=== PATIENT | male | born 1975 | race Caucasian/White ===

== ENCOUNTER 2017-05-25 23:32 | Emergency (ER) | payer OTHER ==
[2017-05-26 00:02] VITALS: BP 133/100; PULSE 102; TEMP 98.3; BMI 25.8
[2017-05-26] MEDS ORDERED: ASPIRIN 81 MG CHEWABLE TABLETS PO ONE (00:46)
[2017-05-26] MEDS ORDERED: ASPIRIN 81 MG CHEWABLE TABLETS ONE (00:53)
[2017-05-26 01:17] LABS: BASOPHIL 1.1 % (0-2.0); EOSINOPHIL 1.1 % (0-4.5); MCH 29.8 pg (25.7-33.7); MCHC 34.6 g/dl (32.0-35.9); MEAN PLT VOLUME 9.8 fl (7.5-11.1); NEUTROPHILS 56.2 % (42.8-82.8); PLATELET COUNT 206 K/MM3 (134-434); RDW 13.7 % (11.9-15.9); WHITE BLOOD COUNT 5.3 K/mm3 (4.0-10.0)
--- NOTE | 2017-05-26 01:21 | PDOC ---
History of Present Illness - General History Source: Patient Exam Limitations: No Limitations - History of Present Illness Initial Comments: 05/26/17 01:29 The patient is a 41 year old female, with a significant past medical history of Colon CA treated and in remission for 3 years, who presents to the emergency department with upper back pain for the past 2 weeks He notes that his pain worsened, prompting him to come to the ED. He describes his pain as ranging from mild to moderate, without radiation. He notes that certain movements exacerbates the pain. He reports that he became diaphoretic, experienced shortness of breath, lightheadedness and chest pain. He describes the chest pain as a pressure, ranging from mild to moderate, without radiation or modifying factors. He notes that the pain lasted a few minutes before resolving. He denies having this kind of pain in the past. He denies any family history of heart disease. He denies any recent travel or history of DVT or PE. He does note that he has been having a chronic dry cough. The patient denies headache, fever, chills, nausea, vomit, diarrhea and constipation. Denies dysuria, frequency, urgency and hematuria. Allergies: None Past surgical history: None reported Social history: No alcohol, tobacco or drug use reported <Tomy Pena - Last Filed: 05/26/17 01:28> <Zahra Gibbons - Last Filed: 05/26/17 02:15> - General Chief Complaint: Back Pain Stated Complaint: PAIN, ACUTE Past History <Tomy Pena - Last Filed: 05/26/17 01:28> - Immunization History Immunization Up to Date: No - Psycho/Social/Smoking Cessation Hx Anxiety: No Suicidal Ideation: No Smoking Status: No Smoking History: Never smoked Have you smoked in the past 12 months: No Number of Cigarettes Smoked Daily: 0 Information on smoking cessation initiated: No Hx Alcohol Use: No Drug/Substance Use Hx: No <Zahra Gibbons - Last Filed: 05/26/17 02:15> - Past Medical History Allergies/Adverse Reactions: Allergies Allergy/AdvReac Type Severity Reaction Status Date / Time No Known Allergies Allergy Unverified 05/26/17 00:00 Home Medications: Ambulatory Orders No Home Medications 0 dose .ROUTE UTDICT 05/20/12 Review of Systems - Review of Systems Able to Perform ROS?: Yes Comments:: 05/26/17 01:29 GENERAL/CONSTITUTIONAL: (+) Fever, diaphoresis. No chills. No weakness. HEAD, EYES, EARS, NOSE AND THROAT: No change in vision. No ear pain or discharge. No sore throat. CARDIOVASCULAR: (+) Chest pain and shortness of breath RESPIRATORY: (+) Cough. No wheezing, or hemoptysis. GASTROINTESTINAL: No nausea, vomiting, diarrhea or constipation. GENITOURINARY: No dysuria, frequency, or change in urination. MUSCULOSKELETAL: No joint or muscle swelling or pain. No neck or back pain. SKIN: No rash NEUROLOGIC:(+) Lightheadedness. No headache, loss of consciousness, or change in strength/sensation. ENDOCRINE: No increased thirst. No abnormal weight change HEMATOLOGIC/LYMPHATIC: No anemia, easy bleeding, or history of blood clots. ALLERGIC/IMMUNOLOGIC: No hives or skin allergy. <Tomy Pena - Last Filed: 05/26/17 01:28> *Physical Exam - Vital Signs Last Vital Signs Temp Pulse Resp BP Pulse Ox 98.3 F 102 H 20 133/100 98 05/26/17 00:00 05/26/17 00:00 05/26/17 00:00 05/26/17 00:00 05/26/17 00:00 - Physical Exam Comments: 05/26/17 01:29 GENERAL: Awake, alert, and fully oriented, in no acute distress HEAD: No signs of trauma, normocephalic, atraumatic EYES: PERRLA, EOMI, sclera anicteric, conjunctiva clear ENT: Auricles normal inspection, hearing grossly normal, nares patent, oropharynx clear without exudates. Moist mucosa NECK: Normal ROM, supple, no lymphadenopathy, JVD, or masses LUNGS: No distress, speaks full sentences, clear to auscultation bilaterally HEART: Regular rate and rhythm, normal S1 and S2, no murmurs, rubs or gallops, peripheral pulses normal and equal bilaterally. ABDOMEN: Soft, nontender, normoactive bowel sounds. No guarding, no rebound. No masses BACK: (+) Paraspinal thoracic tendernes. No midline spinal tenderness. EXTREMITIES: Normal inspection, Normal range of motion, no edema. No clubbing or cyanosis. No edema, no calf tenderness. NEUROLOGICAL: A&O x 3, neurovascularly intact with good strength in all 4 extremities. SKIN: Warm, Dry, normal turgor, no rashes or lesions noted. <Tomy Pena - Last Filed: 05/26/17 01:28> - Vital Signs Last Vital Signs Temp Pulse Resp BP Pulse Ox 98.3 F 102 H 20 133/100 98 05/26/17 00:00 05/26/17 00:00 05/26/17 00:00 05/26/17 00:00 05/26/17 00:00 <Zahra Gibbons - Last Filed: 05/26/17 02:15> Heart Score/ECG Review #1 General ECG Interpretation: Sinus Rhythm, Normal Rate (62), Normal Intervals, No acute ischemic changes Compared to previous ECG there are: Previous ECG unavail <Zahra Gibbons - Last Filed: 05/26/17 02:15> ED Treatment Course - LABORATORY CBC & Chemistry Diagram: 05/26/17 01:06 05/26/17 01:06 - Medications Given in the ED: ED Medications Discontinued Medications Generic Name Dose Route Start Last Admin Trade Name Freq PRN Reason Stop Dose Admin Aspirin 162 mg 05/26/17 00:46 05/26/17 01:11 Asa - PO 05/26/17 00:47 162 mg ONCE ONE Administration <Tomy Pena - Last Filed: 05/26/17 01:28> - LABORATORY CBC & Chemistry Diagram: 05/26/17 01:06 05/26/17 01:06 - RADIOLOGY Radiology Studies Ordered: Category Date Time Status CHEST PA & LAT [RAD] Stat Radiology 05/26/17 00:46 Ordered - Medications Given in the ED: ED Medications Discontinued Medications Generic Name Dose Route Start Last Admin Trade Name Freq PRN Reason Stop Dose Admin Aspirin 162 mg 05/26/17 00:46 05/26/17 01:11 Asa - PO 05/26/17 00:47 162 mg ONCE ONE Administration <Zahra Gibbons - Last Filed: 05/26/17 02:15> Medical Decision Making - Medical Decision Making 05/26/17 01:18 41 yo M with h/o colon CA treated 3 years ago, ( colectomy) in remission here with c/o plueritic upper back pain, for 2 weeks. today noted chest pain and feeling dizzy, lightheaded. diaphretic. cp was pressure like lasting few minutes. 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 no f/c no n/v no mod factor.s no focal weakness. has had dry nonproductive cough x 2 weeks also. no leg swelling. no h;o pe or dvt. no family h/o cad. no prior cardiac workup. n oh/o similar pain. on exam awake alert lungs clear bilaterally heart rrr no mrg. abd soft nt nd. skin warm and dry. no calf tendernss. no edema. nueor 5/5 all four ext. sensatio nintact throughout. differential: pe, infeciton such as pna, upper back strain, angina, effusion, plan cxr las ekg trop asa. d dimer. if all negative 4 hour trop and dc home with outpt cardiology followup. 05/26/17 02:12 labs unremarkable. ekg normal. trop normal. asa given, d dimer negative. pt will require 4 hour trop at 4 am, if negative dc home and followup outpt cardiology <Zahra Gibbons - Last Filed: 05/26/17 02:15> *DC/Admit/Observation/Transfer - Attestations Scribe Attestion: 05/26/17 01:29 Documentation prepared by Tomy Pena, acting as medical equipment technician for Zahra Gibbons MD <Tomy Pena - Last Filed: 05/26/17 01:28> <Zahra Gibobns - Last Filed: 05/26/17 02:15> Diagnosis at time of Disposition: Upper back strain, Chest pain - Referrals Referrals: Deny Salas MD [Staff Physician] - - Patient Instructions Printed Discharge Instructions: DI for Chest Pain Additional Instructions: you should follow up with a concrete buildings assembler call dr. salas ( cardiology ) to schedule. also follow up with your primary doctor. return for any shortness of breath, vomiting, ffeeling faint or any concerns. for your back pain you can take motrin 600 mg every 8 hours as needed for pain.
[2017-05-26 01:44] LABS: ALBUMIN 4.5 g/dl (3.4-5.0); ANION GAP 7 (8-16); BILIRUBIN,TOTAL 0.3 mg/dL (0.2-1.0); CALCIUM 8.8 mg/dL (8.5-10.1); CO2 30 mmol/L (21-32); CREATININE 0.9 mg/dL (0.7-1.3); GLUCOSE,RANDOM 93 mg/dL (74-106); SGOT/AST 16 U/L (15-37); SGPT/ALT 31 U/L (12-78); TOT PROT 7.3 g/dl (6.4-8.2)
[2017-05-26 01:46] LABS: ALK PHOS 74 U/L (45-117); CPK 251 IU/L (39-308); TROPONIN I < 0.02 ng/ml (0.00-0.05)
[2017-05-26 02:01] LABS: INR 0.98 (0.82-1.09)
[2017-05-26 02:03] LABS: ACTIVATED PTT 32.4 SECONDS (26.9-34.4); D-DIMER < 200 ng/ml (<200-235)
[2017-05-26] MEDS ORDERED: SODIUM CHLORIDE 0.9% 1000 ML INFUS.BAG IV ONE (02:14)
[2017-05-26 04:54] LABS: CPK 208 IU/L (39-308); TROPONIN I < 0.02 ng/ml (0.00-0.05)
--- NOTE | 2017-05-26 05:00 | PDOC ---
*Physical Exam - Vital Signs Last Vital Signs Temp Pulse Resp BP Pulse Ox 98.3 F 102 H 20 133/100 98 05/26/17 00:00 05/26/17 00:00 05/26/17 00:00 05/26/17 00:00 05/26/17 00:00 ED Treatment Course - LABORATORY CBC & Chemistry Diagram: 05/26/17 01:06 05/26/17 01:06 - ADDITIONAL ORDERS Additional order review: Laboratory Results 05/26/17 05/26/17 05/26/17 04:20 01:06 01:06 INR 0.98 PTT (Actin FS) 32.4 D-Dimer < 200 Sodium 140 Potassium 4.0 Chloride 103 Carbon Dioxide 30 D Anion Gap 7 L BUN 14 Creatinine 0.9 Creat Clearance w eGFR > 60 Random Glucose 93 D Calcium 8.8 Total Bilirubin 0.3 AST 16 D ALT 31 Alkaline Phosphatase 74 Creatine Kinase 208 251 Creatine Kinase Index 0.6 CK-MB (CK-2) 1.640 Troponin I < 0.02 < 0.02 Total Protein 7.3 Albumin 4.5 05/26/17 01:06 RBC 5.07 MCV 86.0 MCHC 34.6 RDW 13.7 D MPV 9.8 Neutrophils % 56.2 Lymphocytes % 28.0 D Monocytes % 13.6 H Eosinophils % 1.1 D Basophils % 1.1 - Medications Given in the ED: ED Medications Discontinued Medications Generic Name Dose Route Start Last Admin Trade Name Freq PRN Reason Stop Dose Admin Aspirin 162 mg 05/26/17 00:46 05/26/17 01:11 Asa - PO 05/26/17 00:47 162 mg ONCE ONE Administration Sodium Chloride 1,000 ml 05/26/17 02:14 05/26/17 02:16 Normal Saline - IV 05/26/17 02:15 1,000 ml ONCE ONE Administration *DC/Admit/Observation/Transfer Diagnosis at time of Disposition: Upper back strain, Chest pain - Discharge Dispostion Disposition: HOME Condition at time of disposition: Stable Admit: No - Referrals Referrals: Deny Gaspar MD [Staff Physician] - - Patient Instructions Printed Discharge Instructions: DI for Chest Pain Additional Instructions: you should follow up with a contribution solicitor call dr. gaspar ( cardiology ) to schedule. also follow up with your primary doctor. return for any shortness of breath, vomiting, ffeeling faint or any concerns. for your back pain you can take motrin 600 mg every 8 hours as needed for pain. - Post Discharge Activity
--- NOTE | 2017-05-26 13:38 | EKG ---
Test Reason : Blood Pressure : / mmHG Vent. Rate : 062 BPM Atrial Rate : 062 BPM P-R Int : 182 ms QRS Dur : 086 ms QT Int : 382 ms P-R-T Axes : 025 039 029 degrees QTc Int : 387 ms NORMAL SINUS RHYTHM NORMAL ECG WHEN COMPARED WITH ECG OF 21-MAY-2012 02:16, NO SIGNIFICANT CHANGE WAS FOUND Confirmed by CARLO EWING MD ([id number]) on 05/26/2017 1:38:20 PM Referred By: Confirmed By:CARLO EWING MD
== END 2017-05-26 05:07 | disposition home or self-care (01) ==
LOC: JER 23:32
DX: S29.012A Strain of muscle and tendon of back wall of thorax, initial encounter (principal); X58.XXXA Exposure to other specified factors, initial encounter; Y93.89 Activity, other specified; Y92.9 Unspecified place or not applicable; R07.9 Chest pain, unspecified; Z85.038 Personal history of other malignant neoplasm of large intestine
CPT/HCPCS: 36415; 71020-TC; 80053; 82553; 84484; 85025; 85379; 85610; 85730; 93005; 93010; 99282-25

== ENCOUNTER 2018-10-12 23:52 | Emergency (ER) | payer SELFPAY ==
[2018-10-13 01:31] VITALS: BP 122/65; PULSE 78; TEMP 98.3; BMI 25.0
[2018-10-13 02:18] LABS: BASO % 1.1 % (0-2.0); EOS % 2.9 % (0-4.5); HEMATOCRIT 42.9 % (35.4-49); HEMOGLOBIN 15.3 GM/dL (11.7-16.9); LYMPH % 31.3 % (8-40); MCH 30.7 pg (25.7-33.7); MCHC 35.7 g/dl (32.0-35.9); MEAN CELL VOLUME 85.9 fl (80-96); MEAN PLT VOLUME 9.4 fl (7.5-11.1); MONO % 10.6 % (3.8-10.2); NEUT % 54.1 % (42.8-82.8); PLATELET COUNT 240 K/MM3 (134-434); RBC 4.99 M/mm3 (4.00-5.60); RDW 13.4 % (11.9-15.9); WHITE BLOOD COUNT 6.1 K/mm3 (4.0-10.0)
[2018-10-13 03:03] LABS: ANION GAP 9 MMOL/L (8-16); BLOOD UREA NITROGEN 19 mg/dL (7-18); CALCIUM 8.7 mg/dL (8.5-10.1); CHLORIDE 107 mmol/L (98-107); CO2 23 mmol/L (21-32); GLUCOSE,RANDOM 104 mg/dL (74-106); POTASSIUM 4.1 mmol/L (3.5-5.1); SODIUM 139 mmol/L (136-145)
--- NOTE | 2018-10-13 03:25 | PDOC ---
History of Present Illness - General Chief Complaint: Back Pain Stated Complaint: BACK PAIN Time Seen by Provider: 10/13/18 00:43 History Source: Patient Exam Limitations: No Limitations Past History - Past Medical History Allergies/Adverse Reactions: Allergies Allergy/AdvReac Type Severity Reaction Status Date / Time No Known Allergies Allergy Verified 10/13/18 00:54 Home Medications: Ambulatory Orders No Home Medications 0 dose .ROUTE UTDICT 05/20/12 - Immunization History Immunization Up to Date: No - Suicide/Smoking/Psychosocial Hx Smoking Status: No Smoking History: Never smoked Have you smoked in the past 12 months: No Number of Cigarettes Smoked Daily: 0 Information on smoking cessation initiated: No Hx Alcohol Use: No Drug/Substance Use Hx: No *Physical Exam - Vital Signs Last Vital Signs Temp Pulse Resp BP Pulse Ox 98.3 F 78 18 122/65 98 10/12/18 23:55 10/12/18 23:55 10/12/18 23:55 10/12/18 23:55 10/12/18 23:55 - Physical Exam General Appearance: No: Apparent Distress Neck: positive: Supple Respiratory/Chest: positive: Lungs Clear, Normal Breath Sounds. negative: Chest Tender, Respiratory Distress, Accessory Muscle Use Cardiovascular: positive: Regular Rhythm, Regular Rate, S1, S2. negative: Murmur Gastrointestinal/Abdominal: positive: Normal Bowel Sounds, Soft. negative: Tender, Distended, Guarding, Rebound Musculoskeletal: negative: CVA Tenderness Integumentary: positive: Normal Color Neurologic: positive: Fully Oriented, Alert, Normal Mood/Affect Moderate Sedation - Procedure Monitoring Vital Signs: Procedure Monitoring Vital Signs Temperature 98.3 F 10/12/18 23:55 Pulse Rate 78 10/12/18 23:55 Respiratory Rate 18 10/12/18 23:55 Blood Pressure 122/65 10/12/18 23:55 O2 Sat by Pulse Oximetry (%) 98 10/12/18 23:55 ED Treatment Course - LABORATORY CBC & Chemistry Diagram: 10/13/18 01:50 10/13/18 01:50 - ADDITIONAL ORDERS Additional order review: Laboratory Results 10/13/18 10/13/18 01:50 01:50 D-Dimer < 215 Sodium 139 Potassium 4.1 Chloride 107 Carbon Dioxide 23 Anion Gap 9 BUN 19 H Creatinine 1.0 Creat Clearance w eGFR > 60 Random Glucose 104 Calcium 8.7 10/13/18 01:50 RBC 4.99 MCV 85.9 MCHC 35.7 RDW 13.4 MPV 9.4 Neutrophils % 54.1 Lymphocytes % 31.3 Monocytes % 10.6 H Eosinophils % 2.9 D Basophils % 1.1 - RADIOLOGY Radiology Studies Ordered: Category Date Time Status CHEST PA & LAT [RAD] Stat Radiology 10/13/18 01:23 Taken Medical Decision Making - Medical Decision Making 43 y/o M hx of colon CA s/p colectomy, XRT and chemo (in remission 3 years) presents with R upper back pain x 3 weeks, worse with inspiration and movement of body. Saw PCP for this and was given ?pain med, which helped with pain, but pain worsened around 1 week ago (also ran out of his pain meds around 1 week ago ). Denies heavy lifting, trauma. Also mentions having very mild dry cough. Denies fever, sob, cp, abd pain, vomiting, diarrhea, urinary complaints. Patient was seen in 05/2017 for similar sxs (at that time, sxs resolved on their own) Labs done and unremarkable. D-dimer neg so unlikely PE CXR reviewed and negative Probably MSK pain Stable for d/c 10/13/18 03:20 *DC/Admit/Observation/Transfer Diagnosis at time of Disposition: Musculoskeletal back pain - Discharge Dispostion Disposition: HOME Condition at time of disposition: Stable Decision to Admit order: No - Referrals - Patient Instructions Additional Instructions: Thank you for choosing [facility]. It was a pleasure taking care of you. It is unlikely your upper back pain is due to clot in your lungs Likely this could be musculoskeletal pain. You may take Motrin 600 mg every 4 hours by mouth as needed for mild to moderate pain. Take Motrin with food. Consider warm compresses Follow-up with your PCP in 2-3 days. Return to the Emergency Department if your symptoms worsen or persist, you have fever, shortness of breath, chest pain, severe abdominal pain, vomiting or other concerning symptoms. - Post Discharge Activity
--- NOTE | 2018-10-13 04:02 | PDOC ---
*Physical Exam - Vital Signs Last Vital Signs Temp Pulse Resp BP Pulse Ox 98.3 F 78 18 122/65 98 10/12/18 23:55 10/12/18 23:55 10/12/18 23:55 10/12/18 23:55 10/12/18 23:55 ED Treatment Course - LABORATORY CBC & Chemistry Diagram: 10/13/18 01:50 10/13/18 01:50 - ADDITIONAL ORDERS Additional order review: Laboratory Results 10/13/18 10/13/18 01:50 01:50 D-Dimer < 215 Sodium 139 Potassium 4.1 Chloride 107 Carbon Dioxide 23 Anion Gap 9 BUN 19 H Creatinine 1.0 Creat Clearance w eGFR > 60 Random Glucose 104 Calcium 8.7 10/13/18 01:50 RBC 4.99 MCV 85.9 MCHC 35.7 RDW 13.4 MPV 9.4 Neutrophils % 54.1 Lymphocytes % 31.3 Monocytes % 10.6 H Eosinophils % 2.9 D Basophils % 1.1 Medical Decision Making - Medical Decision Making 10/13/18 04:02 Hx/Pe documented by PA noted Agree with assessment and plan *DC/Admit/Observation/Transfer Diagnosis at time of Disposition: Musculoskeletal back pain - Discharge Dispostion Disposition: HOME Condition at time of disposition: Stable - Referrals - Patient Instructions Additional Instructions: Thank you for choosing [facility]. It was a pleasure taking care of you. It is unlikely your upper back pain is due to clot in your lungs Likely this could be musculoskeletal pain. You may take Motrin 600 mg every 4 hours by mouth as needed for mild to moderate pain. Take Motrin with food. Consider warm compresses Follow-up with your PCP in 2-3 days. Return to the Emergency Department if your symptoms worsen or persist, you have fever, shortness of breath, chest pain, severe abdominal pain, vomiting or other concerning symptoms. - Post Discharge Activity
== END 2018-10-13 03:39 | disposition home or self-care (01) ==
LOC: JER 23:52
DX: M54.89 Other dorsalgia (principal); Z85.038 Personal history of other malignant neoplasm of large intestine; Z90.49 Acquired absence of other specified parts of digestive tract
CPT/HCPCS: 36415; 71046-TC-FY; 80048; 85025; 85379; 99281-25

== ENCOUNTER 2022-12-03 09:15 | Emergency (ER) | payer OTHER ==
[2022-12-03 09:23] VITALS: RESP 18; TEMP 97.5; BMI 26.6
[2022-12-03 10:31] LABS: BASO % 0.8 % (0-2.0); HEMOGLOBIN 15.6 GM/dL (11.7-16.9); LYMPH % 23.6 % (8-40); MCH 31.2 pg (25.7-33.7); MCHC 34.6 g/dl (32.0-35.9); MEAN CELL VOLUME 90.1 fl (80-96); MEAN PLT VOLUME 9.1 fl (7.5-11.1); MONO % 9.7 % (3.8-10.2); NEUT % 64.9 % (42.8-82.8); PLATELET COUNT 275 10^3/uL (134-434); RBC 4.99 M/mm3 (4.00-5.60); RDW 14.4 % (11.9-15.9); WHITE BLOOD COUNT 5.3 K/mm3 (4.0-10.0)
[2022-12-03 10:54] LABS: ALBUMIN 4.2 g/dl (3.4-5.0); BLOOD UREA NITROGEN 19.3 mg/dL (7-18); CALCIUM 9.3 mg/dL (8.5-10.1)
[2022-12-03 10:57] LABS: CREATININE 1.2 mg/dL (0.55-1.3)
[2022-12-03 10:59] LABS: BILIRUBIN,TOTAL 0.6 mg/dL (0.2-1); TOT PROT 7.1 g/dl (6.4-8.2)
[2022-12-03 13:00] VITALS: BP 125/61; PULSE 68
== END 2022-12-03 14:39 | disposition home or self-care (01) ==
LOC: JERFT 09:15 → JER 09:15 → JERFT 14:39
DX: R59.0 Localized enlarged lymph nodes (principal)
CPT/HCPCS: 36415; 70487-TC; 80053; 85025; 86735; 99285-25; Q9967